=== PATIENT | female | born 1980 | race Caucasian/White ===

== ENCOUNTER 2020-01-30 21:53 | Emergency (ER) | payer BC, MEDICAID, OTHER ==
[~2020-01-30] VITALS: Ht 152.4 cm; Wt 81.0 kg
[2020-01-30 22:00] VITALS: BP 145/99
== END 2020-01-30 23:36 | disposition home or self-care (01) ==
LOC: ER 21:53
DX: J06.9 Acute upper respiratory infection, unspecified (principal); Z20.828 Contact with and (suspected) exposure to other viral communicable diseases; Z88.1 Allergy status to other antibiotic agents; Z88.8 Allergy status to other drugs, medicaments and biological substances; Z98.890 Other specified postprocedural states; I49.9 Cardiac arrhythmia, unspecified
CPT/HCPCS: 71045; 87635; 93005; 99283; C9803